=== PATIENT | female | born 1960 | race Caucasian/White ===

== ENCOUNTER → 2017-05-19 | Outpatient (CLI) | payer BC ==
--- NOTE | 2017-05-22 07:30 | MM ---
Reason for exam: screening (asymptomatic). Last mammogram was performed 2 years and 10 months ago. History: Patient is postmenopausal. Benign right US cyst aspiration of the right breast, October 13, 2008. Took hormonal contraceptives for 5 years beginning at age 14. Physical Findings: A clinical breast exam by your physician is recommended on an annual basis and results should be correlated with mammographic findings. MG Screening Mammo w CAD Bilateral CC and MLO view(s) were taken. Prior study comparison: July 23, 2014, bilateral MG screening mammo w CAD. August 03, 2011, bilateral digital screening mammo w/CAD. There are scattered fibroglandular densities. There is chronic nodularity in the right breast. No significant changes when compared with prior studies. ASSESSMENT: Benign, BI-RAD 2 RECOMMENDATION: Routine screening mammogram of both breasts in 1 year.
== END | disposition home or self-care (01) ==
LOC: RADMAMWWP 13:17
PROVIDERS: ATTEND Family Medicine
DX: Z12.31 Encounter for screening mammogram for malignant neoplasm of breast (principal)

== ENCOUNTER → 2018-08-24 | Outpatient (CLI) | payer BC ==
--- NOTE | 2018-08-27 09:22 | MM ---
Reason for exam: screening (asymptomatic). Last mammogram was performed 1 year and 3 months ago. History: Patient is postmenopausal. Benign right US cyst aspiration of the right breast, October 13, 2008. Took hormonal contraceptives for 5 years beginning at age 14. Physical Findings: A clinical breast exam by your physician is recommended on an annual basis and results should be correlated with mammographic findings. MG 3D Screening Mammo W/Cad Bilateral CC and MLO view(s) were taken. Prior study comparison: May 19, 2017, bilateral MG screening mammo w CAD. July 23, 2014, bilateral MG screening mammo w CAD. The breast tissue is heterogeneously dense. This may lower the sensitivity of mammography. Stable benign calcifications in the riht breast. There is chronic nodularity in the left breast. No significant changes when compared with prior studies. ASSESSMENT: Benign, BI-RAD 2 RECOMMENDATION: Routine screening mammogram of both breasts in 1 year.
== END | disposition home or self-care (01) ==
LOC: RADMAMWWP 10:11
PROVIDERS: ATTEND Family Medicine
DX: Z12.31 Encounter for screening mammogram for malignant neoplasm of breast (principal)
CPT/HCPCS: 77063; 77067

== ENCOUNTER → 2024-03-28 | Outpatient (CLI) | payer MEDICARE ==
--- NOTE | 2024-03-29 13:06 | MM ---
Reason for Exam: Screening (asymptomatic). Last mammogram was performed 5 year(s) and 7 month(s) ago. Patient History: Menarche at age 13. First Full-Term at age 20. Hysterectomy at age 37. Postmenopausal. Hormonal Contraceptives for 5 years from age 14 until age 19. 10/13/2008, Benign Cyst Aspiration on the right side. Risk Values: Norma 5 year model risk: 1.4%. NCI Lifetime model risk: 5.1%. Prior Study Comparison: 07/23/2014 Bilateral Screening Mammogram, [facility]. 05/19/2017 Bilateral Screening Mammogram, [facility]. 08/24/2018 Bilateral Screening Mammogram, [facility]. Tissue Density: There are scattered areas of fibroglandular density. Findings: Analyzed By CAD. The pattern is symmetrical. There is a nodule within the lower inner anterior aspect left breast near the an interval change. Additional workup is recommended. Right breast:No suspicious groups of microcalcifications, spiculated or lobular masses, architectural distortion or other secondary signs of malignancy are mammographically apparent. Overall Assessment: Incomplete: need additional imaging evaluation, BI-RAD 0 Management: Diagnostic Mammogram of the left breast. A negative mammogram report should not preclude additional follow up of suspicious palpable abnormalities. Patient should continue monthly self breast exam. A clinical breast exam by your physician is recommended on an annual basis and results should be correlated with mammographic findings. Note on Norma scores and lifetime risk: 1. A Norma score greater than 3% is considered moderate risk. If this is the case, consider specialist referral to assess eligibility for a risk reducing agent. 2. If overall lifetime risk for the development of breast cancer is 20% or higher, the patient may qualify for future screening with alternating mammogram and breast MRI. Electronically signed and approved by: Scott Falcon D.O. Radiologis
== END | disposition home or self-care (01) ==
LOC: RADMAMWWP 10:57
PROVIDERS: ATTEND Family Medicine
DX: Z12.31 Encounter for screening mammogram for malignant neoplasm of breast (principal); Z78.0 Asymptomatic menopausal state
CPT/HCPCS: 77067

== ENCOUNTER → 2024-04-02 | Outpatient (CLI) | payer MEDICARE ==
--- NOTE | 2024-04-02 09:23 | MM ---
Reason for Exam: Additional evaluation requested from abnormal screening. Last screening mammogram was performed less than 1 month ago. Patient History: Menarche at age 13. First Full-Term at age 20. Hysterectomy at age 37. Postmenopausal. Hormonal Contraceptives for 5 years from age 14 until age 19. 10/13/2008, Benign Cyst Aspiration on the right side. Risk Values: Norma 5 year model risk: 1.4%. NCI Lifetime model risk: 5.1%. Prior Study Comparison: 05/19/2017 Bilateral Screening Mammogram, [facility]. 08/24/2018 Bilateral Screening Mammogram, [facility]. 03/28/2024 Bilateral MG screening mammo w CAD, [facility]. Tissue Density: Left: There are scattered areas of fibroglandular density. Findings: Analyzed By CAD. Persistent 5 mm circumscribed isodense nodule 9:00 left breast anterior to middle depth for which further ultrasound evaluation is recommended. Overall Assessment: Incomplete: need additional imaging evaluation, BI-RAD 0 Management: Diagnostic Breast Ultrasound of the left breast. Electronically signed and approved by: Twila Gomez M.D. Radiologist
--- NOTE | 2024-04-02 10:31 | USB ---
Reason for Exam: Additional evaluation requested from abnormal screening. Patient History: Menarche at age 13. First Full-Term at age 20. Hysterectomy at age 37. Postmenopausal. Hormonal Contraceptives for 5 years from age 14 until age 19. 10/13/2008, Benign Cyst Aspiration on the right side. Risk Values: Norma 5 year model risk: 1.4%. NCI Lifetime model risk: 5.1%. Technique: Method: Targeted. Prior Study Comparison: 05/19/2017 Bilateral Screening Mammogram, [facility]. 08/24/2018 Bilateral Screening Mammogram, [facility]. 03/28/2024 Bilateral MG screening mammo w CAD, [facility]. Findings: The upper inner quadrant of the left breast, the axilla of the left breast and the retroareolar of the left breast were scanned. Targeted ultrasound 8 and 9:00 position left breast including scanning of the subareolar region and axilla. At the 9:00 position, recently from the nipple, there is a benign 5 x 3 x 3 mm cyst. Likely mammographic correlate. No other solid or cystic lesion or axillary lymphadenopathy. Overall Assessment: Probably benign, BI-RAD 3 Management: Diagnostic Mammogram of the left breast in 6 months. A clinical breast exam by your physician is recommended on an annual basis and results should be correlated with mammographic findings. This exam should not preclude additional follow-up of suspicious palpable abnormalities. Results were given to the patient verbally at the time of exam. Electronically signed and approved by: Twila Gomez M.D. Radiologist
== END | disposition home or self-care (01) ==
LOC: RADMAMWWP 08:57
PROVIDERS: ATTEND Family Medicine
DX: N60.02 Solitary cyst of left breast (principal); N63.25 Unspecified lump in the left breast, overlapping quadrants; R92.322 Mammographic fibroglandular density, left breast; Z78.0 Asymptomatic menopausal state
CPT/HCPCS: 77061; 77065